=== PATIENT | female | born 1960 | race Two or more races ===

== ENCOUNTER 2017-03-24 21:14 | Emergency (ER) | payer OTHER ==
[~2017-03-24] VITALS: Ht 172.7 cm; Wt 54.4 kg
[2017-03-24 21:29] VITALS: BP 96/63
[2017-03-24] MEDS ORDERED: Acetaminophen 500mg (ES) tab ORAL ONE (22:15)
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
[2017-03-25 00:50] VITALS: BP 98/77
== END 2017-03-25 00:50 | disposition left against medical advice (07) ==
LOC: EDBD 21:14 → EMR 21:30
DX: R11.10 Vomiting, unspecified (principal); R10.13 Epigastric pain; G89.4 Chronic pain syndrome
CPT/HCPCS: 99282